=== PATIENT | male | born 1980 | race Hispanic/Latino ===

== ENCOUNTER 2017-01-16 02:01 | Emergency (ER) | payer OTHER ==
[2017-01-16 02:24] VITALS: O2SAT 97
[2017-01-16] MEDS ORDERED: Naproxen 550 mg Tab PO STA (02:49)
[2017-01-16] MEDS ORDERED: Naproxen 550 mg Tab PO ONE (02:54)
--- NOTE | 2017-01-16 03:11 | C.PDOC ---
History Of Present Illness 36 year old male who presents to the ER with a complaint of a sharp pain to the posterior left hamstring area that worsens with walking and movement. Patient describes the pain as a pulling sensation; denies recent injury, heavy lifting, or back pain. Time Seen by Provider: 01/16/17 02:28 Chief Complaint (Nursing): Lower Extremity Problem/Injury History Per: Patient History/Exam Limitations: no limitations Onset/Duration Of Symptoms: Days Current Symptoms Are (Timing): Still Present Recent travel outside of the [place]: No Past Medical History Reviewed: Historical Data, Nursing Documentation, Vital Signs Vital Signs: Last Vital Signs Temp 97.2 F L 01/16/17 04:07 Pulse 80 01/16/17 04:07 Resp 18 01/16/17 04:07 BP 129/69 01/16/17 04:07 Pulse Ox 97 01/16/17 05:31 - Medical History PMH: No Chronic Diseases Surgical History: No Surg Hx Family History: States: Unknown Family Hx - Social History Hx Alcohol Use: No Hx Substance Use: No - Immunization History Hx Tetanus Toxoid Vaccination: Yes Hx Influenza Vaccination: Yes Hx Pneumococcal Vaccination: Yes Review Of Systems Musculoskeletal: Positive for: Leg Pain. Negative for: Back Pain Neurological: Negative for: Weakness, Numbness Physical Exam - Physical Exam Appears: Non-toxic Skin: Normal Color, Warm, Dry Head: Atraumatic, Normacephalic Oral Mucosa: Moist Back: Normal Inspection, No Vertebral Tenderness, No Paraspinal Tenderness Extremity: Normal ROM (x4), Tenderness (to posterior left thigh), No Calf Tenderness, Capillary Refill (good), No Deformity, No Swelling, No Other ( Erythema) Pulses: Left Femoral: Normal, Right Femoral: Normal, Left Dorsalis Pedis: Normal , Right Dorsalis Pedis: Normal Neurological/Psych: Oriented x3, Normal Speech, Normal Cognition ED Course And Treatment O2 Sat by Pulse Oximetry: 97 (Room air) Pulse Ox Interpretation: Normal - Other Rad Left femur x-ray X-Ray: Interpreted by Me, Viewed By Me Interpretation: No acute fractures or dislocations. Left hip x-ray X-Ray: Interpreted by Me, Viewed By Me Interpretation: No acute fractures or dislocations. Medical Decision Making Medical Decision Making: Plan: * Flexeril * Anaprox * Left femur x-ray * Left hip x-ray Patient is PERC negative. Explained to patient the possibility of DVT, however, patient refuses d-dimer or doppler test; he believes his leg is broken and requests an x-ray. Xrays are negative and the results were discussed with the patient. Disposition - Disposition Referrals: [facility] [Outside] Disposition: HOME/ ROUTINE Disposition Time: 04:00 Condition: FAIR Additional Instructions: Follow up with the medical doctor within 1-2 days. Return if worsened, Prescriptions: diaZEpam [Valium] 5 mg PO TID #21 tab Ibuprofen [Motrin] 600 mg PO TID #21 tab traMADol [Ultram] 50 mg PO Q6 PRN #20 tab PRN Reason: Pain Instructions: Muscle Strain (ED) Forms: [facility] (Syriac) - Clinical Impression Clinical Impression: Muscle strain - Scribe Statement The provider has reviewed the documentation as recorded by the Scribe Ugo Malagon All medical record entries made by the Scribe were at my direction and personally dictated by me. I have reviewed the chart and agree that the record accurately reflects my personal performance of the history, physical exam, medical decision making, and the department course for this patient. I have also personally directed, reviewed, and agree with the discharge instructions and disposition.
[2017-01-16 04:13] VITALS: BP 129/69; PULSE 80; RESP 18; TEMP 97.2
--- NOTE | 2017-01-16 09:25 | RAD ---
PROCEDURE: Left Femur Radiographs. HISTORY: leg pain COMPARISON: None. TECHNIQUE: AP and Lateral Radiographs of the left femur. FINDINGS: FEMUR: No fracture. Compression screw distal femoral metaphyseal region likely status post ACL repair. SOFT TISSUES: Normal. OTHER FINDINGS: None. IMPRESSION: No acute fracture
--- NOTE | 2017-01-16 09:26 | RAD ---
PROCEDURE: Left Hip X-ray Radiographs. HISTORY: hip pain COMPARISON: None. FINDINGS: BONES: Normal. No fracture. JOINTS: Normal. SOFT TISSUES: Normal. OTHER FINDINGS: None. IMPRESSION: Normal left hip radiographs.
== END 2017-01-16 04:07 | disposition home or self-care (01) ==
LOC: C.ER 02:01
DX: S76.912A Strain of unspecified muscles, fascia and tendons at thigh level, left thigh, initial encounter (principal); X58.XXXA Exposure to other specified factors, initial encounter

== ENCOUNTER 2017-10-19 23:23 | Emergency (ER) | payer BC, OTHER ==
[2017-10-19 23:44] VITALS: O2SAT 99
[2017-10-19] MEDS ORDERED: Sodium Chloride 0.9% 1,000 ML IV ONE (23:46)
--- NOTE | 2017-10-19 23:46 | C.PDOC ---
History Of Present Illness Patient presents to the ER with a complaint of abdominal pain, nausea, and vomiting that began tonight after eating some grilled foods. Denies fever or chills. Time Seen by Provider: 10/19/17 23:46 Chief Complaint (Nursing): Abdominal Pain History Per: Patient History/Exam Limitations: no limitations Onset/Duration Of Symptoms: Hrs Current Symptoms Are (Timing): Still Present Severity: Moderate Pain Scale Rating Of: 4 Location Of Pain/Discomfort: Epigastric Radiation Of Pain To:: None Quality Of Discomfort: Unable To Describe Associated Symptoms: Nausea, Vomiting. denies: Fever, Chills Exacerbating Factors: None Alleviating Factors: None Recent travel outside of the [place]: No Past Medical History Reviewed: Historical Data, Nursing Documentation, Vital Signs Vital Signs: Last Vital Signs Temp 98.6 F 10/19/17 23:38 Pulse 92 H 10/19/17 23:38 Resp 20 10/19/17 23:38 BP 154/78 H 10/19/17 23:38 Pulse Ox 99 10/20/17 00:27 Family History: States: No Known Family Hx - Social History Hx Alcohol Use: No Hx Substance Use: No - Immunization History Hx Tetanus Toxoid Vaccination: Yes Hx Influenza Vaccination: Yes Hx Pneumococcal Vaccination: Yes Review Of Systems Constitutional: Negative for: Fever, Chills Cardiovascular: Negative for: Chest Pain Respiratory: Negative for: Cough, Shortness of Breath Gastrointestinal: Positive for: Nausea, Vomiting, Abdominal Pain Physical Exam - Physical Exam Appears: Non-toxic Skin: Warm, Dry, Pale (Baseline) Head: Normacephalic Oral Mucosa: Moist Chest: Symmetrical, No Tenderness Cardiovascular: Rhythm Regular Respiratory: No Rales, No Rhonchi, No Wheezing Gastrointestinal/Abdominal: Soft, Tenderness (Mid epigastric), No Guarding, No Rebound Neurological/Psych: Oriented x3 ED Course And Treatment - Laboratory Results Result Diagrams: 10/19/17 23:55 10/19/17 23:55 O2 Sat by Pulse Oximetry: 99 (room air) Pulse Ox Interpretation: Normal Progress Note: Blood work and urinalysis ordered. IV fluids, zofran, and toradol administered. Reevaluation Time: 04:35 Reassessment Condition: Improved Medical Decision Making Medical Decision Making: Upon provider reevaluation patient is feeling better, is medically stable, and requires no further treatment in the ED at this time. Patient will be discharged home with Rx for zofrab, protonix . Counseling was provided and all questions were answered regarding diagnosis and need for follow up with dr cameron. There is agreement to discharge plan. Return if symptoms persist or worsen. Disposition Counseled Patient/Family Regarding: Studies Performed, Diagnosis, Need For Followup - Disposition Referrals: Radha Cameron MD [Medical Doctor] - Disposition: HOME/ ROUTINE Disposition Time: 23:46 Condition: FAIR Prescriptions: Ondansetron ODT [Zofran ODT] 1 odt PO BID PRN #6 odt PRN Reason: Nausea/Vomiting Pantoprazole Sodium [Protonix] 40 mg PO DAILY #15 ect Instructions: Acute Abdomen (Belly Pain), Adult (DC), Nausea and Vomiting, Adult (DC) Forms: [facility] (Estonian) - Clinical Impression Clinical Impression: Abdominal pain, Nausea, Vomiting - Scribe Statement The provider has reviewed the documentation as recorded by the Scribe Ugo Malagon All medical record entries made by the Scribe were at my direction and personally dictated by me. I have reviewed the chart and agree that the record accurately reflects my personal performance of the history, physical exam, medical decision making, and the department course for this patient. I have also personally directed, reviewed, and agree with the discharge instructions and disposition.
[2017-10-20] MEDS ORDERED: Sodium Chloride 0.9% 1,000 ML ONE (00:08)
[2017-10-20 00:19] LABS: BASO % 0.2 % (0.0-2.0); EOS # 0.1 K/uL (0.0-0.7); EOS % 0.7 % (0.0-4.0); HEMOGLOBIN 12.4 g/dL (12.0-18.0); LYMPH % 9.9 % (20.0-40.0); MEAN CORPUSCULAR HEMOGLOBIN 30.9 pg (27.0-31.0); MEAN CORPUSCULAR HGB CONC 34.3 g/dL (33.0-37.0); MEAN PLATELET VOLUME 7.6 fL (7.2-11.7); MONO # 0.3 K/uL (0.0-0.8); MONO % 2.9 % (0.0-10.0); NEUT # 8.3 K/uL (1.8-7.0); NEUT % 86.3 % (50.0-75.0); PLATELET COUNT 282 K/uL (130-400); RBC 4.02 Mil/uL (4.40-5.90); RED CELL DISTRIBUTION WIDTH 13.1 % (11.5-14.5); WHITE BLOOD COUNT 9.6 K/uL (4.8-10.8)
[2017-10-20 00:26] LABS: MEAN CELL VOLUME 90.2 fL (80.0-94.0)
[2017-10-20 00:35] LABS: ALB/GLOB RATIO 1.4 (1.0-2.1); ALT/SGPT 18 U/L (21-72); AST/SGOT 26 U/L (17-59); BLOOD UREA NITROGEN 16 mg/dL (9-20); CALCIUM 9.2 mg/dl (8.6-10.4); GFR AFRICAN-AMERICAN > 60; GFR NON-AFRICAN AMERICAN > 60; LIPASE 152 U/L (23-300)
[2017-10-20 00:55] LABS: LYMPHOCYTE 10 % (20-40); MONOCYTE 5 % (0-10); NEUTROPHIL 85 % (50-75); PLATELET ESTIMATE NORMAL (NORMAL); TOTAL CELLS COUNTED 100
[2017-10-20 00:58] LABS: URINE BILIRUBIN NEGATIVE (NEGATIVE); URINE BLOOD NEGATIVE (NEGATIVE); URINE CLARITY Clear (Clear); URINE COLOR Yellow (YELLOW); URINE GLUCOSE (UA) NORMAL (Normal); URINE HYALINE CAST 0-2 /lpf (0-2); URINE LEUKOCYTE ESTERASE NEG Leu/uL (Negative); URINE PROTEIN NEGATIVE (NEGATIVE); URINE UROBILINOGEN NORMAL mg/dL (0.2-1.0)
[2017-10-20] MEDS ORDERED: Iohexol 350mg/ml 100 ML ONE (01:26)
[2017-10-20 04:59] VITALS: BP 107/65; PULSE 71; RESP 18; TEMP 97.8
--- NOTE | 2017-10-20 08:45 | CT ---
PROCEDURE: CT Abdomen and Pelvis without intravenous contrast HISTORY: Right upper quadrant abdominal pain COMPARISON: None. TECHNIQUE: Multiple contiguous axial images were performed through the abdomen and pelvis with the use of intravenous contrast. Subsequently, sagittal and coronal reformatted images obtained. Radiation dose: Total exam DLP = 813 mGy-cm. This CT exam was performed using one or more of the following dose reduction techniques: Automated exposure control, adjustment of the mA and/or kV according to patient size, and/or use of iterative reconstruction technique. FINDINGS: LOWER THORAX: Atelectasis at the posterior lungs. Punctate 2 millimeter nodule in the right lung anteriorly on series 3, image 8. LIVER: Unremarkable. No gross lesion or ductal dilatation. GALLBLADDER AND BILE DUCTS: Contracted gallbladder. PANCREAS: Unremarkable. No gross lesion or ductal dilatation. SPLEEN: Unremarkable. Splenule. ADRENALS: Unremarkable. No mass. KIDNEYS AND URETERS: Punctate 1-2 millimeter nonobstructing calculus in the midpole of the right kidney. No gross hydronephrosis. VASCULATURE: Unremarkable. No aortic aneurysm. BOWEL: Unremarkable. No obstruction. No gross mural thickening. APPENDIX: Not well visualized. PERITONEUM: Unremarkable. No free fluid. No free air. LYMPH NODES: Unremarkable. No enlarged lymph nodes. BLADDER: Unremarkable. REPRODUCTIVE: Heterogeneous prostate with associated internal calcifications. BONES: No acute fracture. OTHER FINDINGS: None. IMPRESSION: Punctate 1-2 millimeter nonobstructing calculus in the midpole of the right kidney. No gross hydronephrosis. Appendix not well visualized. Contracted gallbladder. These findings were preliminarily reported at 4:14 a.m. on 10/20/[address] Solis Walker from [facility].
== END 2017-10-20 05:00 | disposition home or self-care (01) ==
LOC: C.ER 23:23
DX: R10.13 Epigastric pain (principal); R11.2 Nausea with vomiting, unspecified
CPT/HCPCS: 74177; 80053; 81001; 83690; 85025; 96361; 96374; 96375; 99284; C9113; J1885; J2405; J7040; Q9967

== ENCOUNTER 2018-04-17 20:31 | Emergency (ER) | payer BC ==
[2018-04-17 20:56] VITALS: RESP 20
--- NOTE | 2018-04-17 21:45 | C.PDOC ---
History Of Present Illness Patient reports two day history of nausea and vomiting, vomited about 8x today. Also reports epigastric pain. He has a history of Chalo fundoplication. Denies fever, diarrhea, or any other symptoms. States that he had similar symptoms back in October and "they gave me toradol, zofran, and protonix which helped a lot", requesting the same meds today. Time Seen by Provider: 04/17/18 21:01 Chief Complaint (Nursing): Abdominal Pain Past Medical History Vital Signs: Last Vital Signs Temp 98.6 F 04/17/18 20:55 Pulse 85 04/17/18 20:55 Resp 20 04/17/18 20:55 BP 149/86 04/17/18 20:55 Pulse Ox 100 04/17/18 20:55 - Medical History PMH: No Chronic Diseases Other Surgeries: Chalo fundoplication Family History: States: Unknown Family Hx - Social History Hx Alcohol Use: No Hx Substance Use: No - Immunization History Hx Tetanus Toxoid Vaccination: Yes Hx Influenza Vaccination: Yes Hx Pneumococcal Vaccination: Yes Review Of Systems Except As Marked, All Systems Reviewed And Found Negative. Constitutional: Negative for: Fever Cardiovascular: Negative for: Chest Pain Respiratory: Negative for: Shortness of Breath Gastrointestinal: Positive for: Nausea, Vomiting, Abdominal Pain. Negative for: Diarrhea Genitourinary: Negative for: Dysuria Neurological: Negative for: Weakness Physical Exam - Physical Exam Appears: Non-toxic Skin: Warm, Dry Head: Atraumatic Eye(s): bilateral: Normal Inspection Oral Mucosa: Moist Cardiovascular: Rhythm Regular Respiratory: Normal Breath Sounds Gastrointestinal/Abdominal: Soft, Tenderness (minimal, epigastric), No Distention, No Guarding, No Rebound Extremity: Normal ROM ED Course And Treatment - Laboratory Results Result Diagrams: 04/17/18 22:02 04/17/18 21:50 O2 Sat by Pulse Oximetry: 100 Medical Decision Making Medical Decision Making: Patient given toradol, protonix, zofran ivp. 1L NS bolus given as well. Hypokalemia noted, and patient received 40meq KCl IVPB. On re-eval, patient states that he feels much better and is ready to go home. Disposition - Disposition Disposition: HOME/ ROUTINE Disposition Time: 00:56 Condition: GOOD Additional Instructions: DIPIKA WOLFF, thank you for letting us take care of you today. Your provider was Laina Poole MD and you were treated for STOMACH VIRUS/VOMITING. The emergency medical care you received today was directed at your acute symptoms. If you were prescribed any medication, please fill it and take as directed. It may take several days for your symptoms to resolve. Return to the Emergency Department if your symptoms worsen, do not improve, or if you have any other problems. Please contact your doctor or call one of the physicians/clinics you have been referred to that are listed on the Patient Visit Information form that is included in your discharge packet. Bring any paperwork you were given at discharge with you along with any medications you are taking to your follow up visit. Our treatment cannot replace ongoing medical care by a primary care provider outside of the emergency department. Thank you for allowing the [facility] team to be part of your care today. If you had an X-Ray or CT scan: A Radiologist will review the ED reading if any change in treatment is needed we will contact you. If you had a blood, urine, or wound culture: It will take several days for the results, if any change in treatment is needed we will contact you. If you had an STI test: It will take 48 hours for the results. Please call after 1 week if you have not heard back. Instructions: Hypokalemia (DC), Viral Gastroenteritis, Adult (DC) Forms: [facility] (Czech) - Clinical Impression Clinical Impression: Viral gastroenteritis, Hypokalemia
[2018-04-17 21:56] LABS: BASO % 0.4 % (0.0-2.0); EOS # 0.2 K/uL (0.0-0.7); EOS % 2.3 % (0.0-4.0); HEMOGLOBIN 11.7 g/dL (12.0-18.0); LYMPH # 1.1 K/uL (1.0-4.3); LYMPH % 12.4 % (20.0-40.0); MEAN CELL VOLUME 87.1 fL (80.0-94.0); MEAN CORPUSCULAR HEMOGLOBIN 29.7 pg (27.0-31.0); MEAN CORPUSCULAR HGB CONC 34.1 g/dL (33.0-37.0); MEAN PLATELET VOLUME 8.3 fL (7.2-11.7); MONO # 0.6 K/uL (0.0-0.8); MONO % 6.7 % (0.0-10.0); NEUT # 6.9 K/uL (1.8-7.0); NEUT % 78.2 % (50.0-75.0); RBC 3.95 Mil/uL (4.40-5.90); RED CELL DISTRIBUTION WIDTH 15.1 % (11.5-14.5); WHITE BLOOD COUNT 8.8 K/uL (4.8-10.8)
[2018-04-17 22:13] LABS: ALB/GLOB RATIO 1.6 (1.0-2.1); ALBUMIN 3.7 g/dL (3.5-5.0); ALT/SGPT 34 U/L (21-72); AST/SGOT 24 U/L (17-59); BLOOD UREA NITROGEN 17 mg/dL (9-20); CALCIUM 9.2 mg/dl (8.6-10.4); GFR NON-AFRICAN AMERICAN > 60
[2018-04-17] MEDS ORDERED: Potassium Chloride 20 mEq 200 ML ONE (22:55)
[2018-04-17] MEDS ORDERED: Sodium Chloride 0.9% 1,000 ML IV ONE (22:59)
[2018-04-17 23:27] VITALS: TEMP 98.6
[2018-04-18 01:16] VITALS: BP 138/78; PULSE 81
[2018-04-18 03:52] VITALS: O2SAT 100
== END 2018-04-18 01:16 | disposition home or self-care (01) ==
LOC: C.ER 20:31
DX: A08.4 Viral intestinal infection, unspecified (principal); E87.6 Hypokalemia
CPT/HCPCS: 80053; 83735; 84100; 85025; 96361; 96374; 96375; 99285; C9113; J1885; J2405; J3480; J7030